=== PATIENT | female | born 1935 | race Caucasian/White ===

== ENCOUNTER 2020-06-04 00:13 | Inpatient (IN) | payer MEDICARE, OTHER ==
[2020-06-04] MEDS ORDERED: Furosemide 40 MG/4 ML VIAL ONE (01:29)
[2020-06-04] MEDS ORDERED: Diltiazem 125 MG/25 ML ONE (01:29)
[2020-06-04] MEDS ORDERED: Acetaminophen 325 MG TAB PO PRN (03:46)
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
[2020-06-04] MEDS ORDERED: Menthol/Camphor Lotion 222 ml Bottle TOP PRN (04:45)
[2020-06-04] MEDS: Furosemide 40 MG/4 ML VIAL SLOW IVP SCH ×2 (07:17→15:26)
--- NOTE | 2020-06-04 07:20 | CT ---
PRELIMINARY REPORT/[facility]/EMERGENCY AFTER HOURS PROCEDURE Receipt of this report by the clinical staff was confirmed with Favian Li DO by Jacquelin dasilva Jun 04, 2020 01:20:00 CDT. Addendum electronically signed by Jacquelin dasilva on June 04, 2020 1:21:36 AM CDT EXAM: CTA Chest with Intravenous Contrast CLINICAL HISTORY: Eval for possible PE; pt was seen in [place] for difficulty breathing, tightness in chest, and weaknes s. TECHNIQUE: Axial CTA images of the chest with intravenous contrast. Three-dimensional MIP/volume rendered reform ations were performed. Multiplanar reformats provided. CONTRAST: With; ISOVUE 370, 75ML intravenous. COMPARISON: None provided. FINDINGS: PULMONARY ARTERIES There is no intraluminal filling defect suspicious for PE. The main pulmonary artery and major branc hes are enlarged suggesting pulmonary hypertension. AORTA No thoracic aortic aneurysm or dissection. LUNGS The lungs are clear. No pulmonary mass. No focal airspace consolidation. PLEURAL SPACES Bilateral right greater than left layering pleural effusions. HEART AND MEDIASTINUM 4 chamber cardiac enlargement. LYMPH NODES No mediastinal adenopathy. Left axillary lymph node measures up to 1.2 cm in short axis. BONES No focal osseous abnormality or acute fracture. Multilevel degenerative changes of the spine. CHEST WALL AND UPPER ABDOMEN Left breast skin thickening, sub-cutaneous edema and nodule measuring 1.8 cm (series 2 image 65). IMPRESSION: 1. Negative for PE. 2. Bilateral pleural effusions, right greater than left. 3. Cardiomegaly. Correlate for CHF. 4. Left breast skin thickening, asymmetric edema within the left breast and possible mass. Correlat e with findings on mammography. 5. Enlarged pulmonary artery suggesting pulmonary hypertension. ELECTRONICALLY SIGNED BY: Cody Bello M.D. Jun 04, 2020 1:15:48 AM CDT This report is intended for review by the ordering physician only, in accordance of law. If you recei ve this report in error, please call [facility] at [phone]. FINAL REPORT Exam: CT angiogram of the chest HISTORY: Chest tightness, weakness and difficulty breathing COMPARISON: None TECHNIQUE: CT angiogram of the chest is performed in the axial plane. Three-dimensional reformatted i mages are submitted for interpretation FINDINGS: Mediastinum: No mass, lymphadenopathy or hematoma. HEART: Cardiomegaly. No significant pericardial effusion. Aorta: No aneurysm or dissection Upper solid abdominal viscera: No abnormality enhancement. Trachea and central bronchi: Patent Pleural spaces: Moderate right and small left pleural effusion Lung parenchyma: Consolidation of the right lower lobe and middle lobe likely due to atelectasis. Pneumothorax: None Osseous structures: No lytic or blastic lesions Pulmonary arteries: Adequate contrast opacification pulmonary arterial system to the level of segment al arteries. No filling defect to suggest pulmonary embolism IMPRESSION: 1. This report is in agreement with initial report by [facility]. 2. No evidence of pulmonary artery embolism to the level of the segmental arteries. 3. Cardiomegaly, pleural effusion. Correlate for congestive heart failure. 4. Asymmetric prominence of the left breast. Nonemergent mammography is recommended. Transcribed Date/Time: 06/04/2020 7:32 AM
[2020-06-04] MEDS ORDERED: Apixaban 5 MG TAB PO SCH (09:00)
[2020-06-04] MEDS ORDERED: Apixaban 2.5 MG TAB PO SCH (09:00)
[2020-06-04] MEDS ORDERED: Iopamidol 370 76% 100 ML VIAL ONE (09:28)
[2020-06-04] MEDS: Diltiazem 125 MG in Sodium Chloride 0.9% 100 ML IVPB SCH ×2 (10:53→19:53)
[2020-06-04 11:04] LABS: #Eosinphils 0.5 thou/uL (0.0-0.7); #Lymphocytes 0.5 thou/uL (1.20-3.40); #Monocytes 0.5 thou/uL (0.11-0.59); #Neutrophils 5.7 thou/uL (1.40-6.50); %Basophils 0.4 % (0.0-1.0); %Eosinophils 6.6 % (0.0-10.0); %Lymphocytes 6.7 % (21.0-51.0); %Monocytes 6.9 % (0.0-10.0); %Neutrophils 79.4 % (42.0-75.0); Hemoglobin 8.9 g/dL (12.0-16.0); Mean Corpuscular HGB CONC 30.2 g/dL (32.0-36.0); Mean Corpuscular Hemoglobin 23.7 pg (27.0-31.0); Mean Corpuscular Volume 78.4 fL (78.0-98.0); Mean Platelet Volume 8.5 fL (7.4-10.4); Platelet Count 218 thou/uL (130-400); RBC Distribution Width 15.1 % (11.5-14.5); Red Blood Cell (RBC) Count 3.76 mill/uL (4.20-5.40); White Blood Cell (WBC) Count 7.1 thou/uL (4.8-10.8)
--- NOTE | 2020-06-04 11:13 | CON ---
DATE OF CONSULTATION: HISTORY OF PRESENT ILLNESS: Alondra Morales from [place], [place], who was brought in over here by the son who lives here locally because she lives by herself. She presented with shortness of breath without any associated chest pain, chills, or sweats. She has never smoked, but she said her had longstanding history of tobacco abuse, can barely walk couple of 100 feet without getting markedly short of breath. PAST MEDICAL HISTORY: Otherwise, atrial fibrillation, hypothyroidism, hypertension, history of breast cancer, history of psoriasis. PREVIOUS SURGERIES: Hemorrhoid, cholecystectomy, bilateral breasts biopsy, fusion in the back, tonsils. SOCIAL HISTORY: Alcohol, none. Tobacco, none. ALLERGIES: AMPICILLIN, CIPRO, PENICILLIN. MEDICATIONS: Unknown current medications, but we are trying to get medicine from [place], [place] to restart home medications. REVIEW OF SYSTEMS: Otherwise, unremarkable. PHYSICAL EXAMINATION: VITAL SIGNS: Pulse is 86 and regular, blood pressure 160/70, respiratory rate of 18. CHEST: Decreased breath sounds bilaterally without any wheezing. CARDIAC: Normal S1 and S2. No gallops. ABDOMEN: No masses. DIAGNOSTIC STUDIES: X-ray shows right pleural effusion. CAT scan shows bilateral pleural effusions without any associated pulmonary emboli. LABORATORY DATA: White count 5000, H and H of , platelet count is normal. D-dimer is 2.5. Chemistry profile is unremarkable. BNP 398. ASSESSMENT AND PLAN: Congestive heart failure, bilateral pleural effusions, hypothyroidism, atrial fibrillation, breast cancer seroma, on p.o. medication. Once medicine list arrives, we can restart all home medications. I agree with diuretics. Deep venous thrombosis prophylaxis. Supportive care. We will follow in the ICU. Consultation note, 70 minutes, 50% direct patient care. Job ID: [id number]
[2020-06-04 11:32] LABS: Anion Gap 14 mmol/L (10-20); BUN (Urea Nitrogen) 10 mg/dL (9.8-20.1); Calc. Creatinine Clearance 68 mL/min (70-130); Carbon Dioxide 27 mmol/L (23-31); Chloride 100 mmol/L (98-107); Estimated GFR-MDRD 64; Potassium 4.2 mmol/L (3.5-5.1); Sodium 137 mmol/L (136-145)
[2020-06-04 11:33] LABS: Calcium 9.6 mg/dL (7.8-10.44); Glucose 132 mg/dL (83-110)
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
[2020-06-04] MEDS: Apixaban 5 MG TAB PO SCH (20:18)
[2020-06-04] MEDS: Lubiprostone 8 MCG CAP PO SCH (20:19)
[2020-06-04] MEDS: hydrOXYzine 25 MG TAB PO SCH (20:19)
[2020-06-05] MEDS: Furosemide 40 MG/4 ML VIAL SLOW IVP SCH ×2 (05:19→13:18)
[2020-06-05] MEDS: Levothyroxine Sodium 125 MCG TAB PO SCH (05:19)
[2020-06-05] MEDS: Ammonium Lactate 12% Lotion 225 GM BOT TOP PRN (05:24)
[2020-06-05 05:53] LABS: #Eosinphils 0.6 thou/uL (0.0-0.7); #Lymphocytes 0.7 thou/uL (1.20-3.40); #Monocytes 0.5 thou/uL (0.11-0.59); #Neutrophils 5.2 thou/uL (1.40-6.50); %Basophils 0.4 % (0.0-1.0); %Eosinophils 8.4 % (0.0-10.0); %Monocytes 7.4 % (0.0-10.0); %Neutrophils 73.8 % (42.0-75.0); Hemoglobin 8.5 g/dL (12.0-16.0); Mean Corpuscular Volume 77.3 fL (78.0-98.0); Mean Platelet Volume 8.6 fL (7.4-10.4); Platelet Count 201 thou/uL (130-400); RBC Distribution Width 15.3 % (11.5-14.5); Red Blood Cell (RBC) Count 3.56 mill/uL (4.20-5.40)
[2020-06-05 06:14] LABS: Anion Gap 14 mmol/L (10-20); BUN (Urea Nitrogen) 13 mg/dL (9.8-20.1); Calc. Creatinine Clearance 52 mL/min (70-130); Calcium 9.2 mg/dL (7.8-10.44); Carbon Dioxide 27 mmol/L (23-31); Chloride 99 mmol/L (98-107); Estimated GFR-MDRD 46; Glucose 103 mg/dL (83-110); Potassium 3.9 mmol/L (3.5-5.1); Sodium 136 mmol/L (136-145)
--- NOTE | 2020-06-05 08:20 | PRG ---
DATE OF SERVICE: 06/05/2020 SUBJECTIVE: Alondra Morales remains in the ICU and she says she is less short of breath. OBJECTIVE: VITAL SIGNS: Temperature is 98, pulse 97, sats 97% on 2 L, blood pressure I's and O's have been negative. CHEST: Decreased breath sounds. No wheezing. CARDIAC: Normal S1, S2. No gallops. ABDOMEN: No masses. IMPRESSION: 1. Respiratory failure secondary to congestive heart failure. 2. Atrial fibrillation. 3. Bilateral pleural effusion. 4. Hypothyroidism. PLAN: Await echo. We want to get Cardiology consult. Pulmonary is going to follow while in the ICU. Job ID: [id number]
[2020-06-05] MEDS: Apixaban 5 MG TAB PO SCH ×2 (09:11→21:54)
[2020-06-05] MEDS: Potassium Chloride 20 MEQ TAB PO SCH (09:11)
[2020-06-05] MEDS: Losartan 25 MG TAB PO SCH (09:11)
[2020-06-05] MEDS: Lubiprostone 8 MCG CAP PO SCH ×2 (09:15→21:56)
[2020-06-05] MEDS ORDERED: Prevnar 13-Val Conj/PF 0.5 ML SYRINGE IM ONE (11:00)
[2020-06-05 12:01] LABS: SARS-CoV-2 MS2 Positive; SARS-CoV-2 N Gene Negative; SARS-CoV-2 S Gene Negative; SARS-CoV-2 by NAA Not Detected (NotDetected); SARS-CoV-2 orf1ab Negative
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
--- NOTE | 2020-06-05 19:37 | CON ---
DATE OF CONSULTATION: HISTORY OF PRESENT ILLNESS: The patient is an 84-year-old woman, who presents with increasing dyspnea. The patient has a history of permanent atrial fibrillation. She takes chronic anticoagulation therapy. The patient is followed by a chief of surgery in [place]. She was in her usual state of health when she had to leave emergently. The patient was ran out of her medications. She presented to the emergency room markedly dyspneic. The patient denied having any chest discomfort. PAST MEDICAL HISTORY: 1. Congestive heart failure. 2. Atrial fibrillation. 3. Breast carcinoma. 4. Hypertension. 5. Psoriasis. PAST SURGICAL HISTORY: Hemorrhoidectomy, tonsillectomy, cholecystectomy, and back surgery. SOCIAL HISTORY: Nonsmoker. FAMILY HISTORY: Positive family history of congestive heart failure. MEDICATIONS: 1. Toprol 100 b.i.d. 2. Cardizem 240 q.i.d. 3. Potassium 20 daily. 4. Benicar 20 daily. 5. Synthroid 250 mcg daily. 6. Lasix 40 b.i.d. 7. Eliquis 5 b.i.d. ALLERGIES: CIPROFLOXACIN, AMPICILLIN, AND PENICILLIN. PHYSICAL EXAMINATION: GENERAL: Well-developed woman, in no acute distress. VITAL SIGNS: Blood pressure is 91/47. NECK: No jugular venous distention. LUNGS: Decreased breath sounds in the right base. HEART: Irregular rate and rhythm. Normal S1 and S2. ABDOMEN: Nondistended. EXTREMITIES: Showed moderate bilateral edema. VASCULAR: Radial pulse 2+. LABORATORY DATA: White blood cell count 7.0, hemoglobin 8.5, hematocrit 27.5, and platelets 201. Sodium 136, potassium 3.9, chloride 99, bicarbonate 27, BUN 13, and creatinine 1.12. EKG atrial fibrillation with a nonspecific T-wave abnormality. Echocardiogram normal left ventricular ejection fraction 55% to 60% with diastolic dysfunction and mild aortic regurgitation. IMPRESSION: 1. Congestive heart failure secondary to diastolic dysfunction. 2. Atrial fibrillation, permanent. 3. Hypertension. 4. Breast carcinoma. 5. Hypothyroidism. This patient presents with congestive heart failure and rapid atrial fibrillation. The patient ran out of her medications. The patient has been diuresed and restarted on her cardiac medications. From a cardiac standpoint, we will adjust her medications with her low blood pressure. The patient will continue being diuresed with Lasix. We will follow this patient with you through her hospitalization. Job ID: [id number] JANAK
[2020-06-05] MEDS: hydrOXYzine 25 MG TAB PO SCH (21:54)
[2020-06-06 03:56] LABS: #Eosinphils 0.8 thou/uL (0.0-0.7); #Lymphocytes 0.6 thou/uL (1.20-3.40); #Monocytes 0.5 thou/uL (0.11-0.59); #Neutrophils 4.4 thou/uL (1.40-6.50); %Basophils 0.6 % (0.0-1.0); %Eosinophils 12.1 % (0.0-10.0); %Lymphocytes 9.7 % (21.0-51.0); %Monocytes 8.4 % (0.0-10.0); %Neutrophils 69.2 % (42.0-75.0); Hemoglobin 8.2 g/dL (12.0-16.0); Mean Corpuscular HGB CONC 30.9 g/dL (32.0-36.0); Mean Corpuscular Hemoglobin 24.2 pg (27.0-31.0); Mean Corpuscular Volume 78.4 fL (78.0-98.0); Mean Platelet Volume 8.8 fL (7.4-10.4); Platelet Count 194 thou/uL (130-400); RBC Distribution Width 15.1 % (11.5-14.5); White Blood Cell (WBC) Count 6.4 thou/uL (4.8-10.8)
[2020-06-06 04:16] LABS: Anion Gap 12 mmol/L (10-20); BUN (Urea Nitrogen) 18 mg/dL (9.8-20.1); Calc. Creatinine Clearance 55 mL/min (70-130); Calcium 9.1 mg/dL (7.8-10.44); Carbon Dioxide 27 mmol/L (23-31); Chloride 98 mmol/L (98-107); Estimated GFR-MDRD 50; Glucose 105 mg/dL (83-110); Sodium 133 mmol/L (136-145)
[2020-06-06] MEDS: Levothyroxine Sodium 125 MCG TAB PO SCH (05:49)
[2020-06-06] MEDS: Furosemide 40 MG/4 ML VIAL SLOW IVP SCH ×2 (05:49→15:40)
[2020-06-06] MEDS: Losartan 25 MG TAB PO SCH (09:08)
[2020-06-06] MEDS: Lubiprostone 8 MCG CAP PO SCH ×2 (09:09→20:54)
[2020-06-06] MEDS: Potassium Chloride 20 MEQ TAB PO SCH (09:09)
[2020-06-06] MEDS: Apixaban 5 MG TAB PO SCH ×2 (09:09→20:54)
--- NOTE | 2020-06-06 14:30 | PRG ---
DATE OF SERVICE: 06/06/2020 SUBJECTIVE: Ms. Morales was awakened from sleep this morning and her breakfast was at the bedside. She had no complaints other than being sleepy. OBJECTIVE: VITAL SIGNS: She is afebrile, heart rate 77, respiratory rate 16, oximetry is 94% on room air, her blood pressure is 152/63. LUNGS: Clear. HEART: Regular rate and rhythm. Abdomen Soft and nontender. EXTREMITIES: With minimal edema. LABORATORY DATA: White count 6.4, hemoglobin is 8.2, platelets 194. All these labs are stable. Electrolytes are unremarkable except for mild decrease in sodium if 133, creatinine is 1.06. Echocardiogram done yesterday shows an ejection fraction 55% to 60%. Diastolic dysfunction was noted, thickened aortic valve leaflets were noted, but no report is noted of aortic stenosis. IMPRESSION: Congestive heart failure, clinically stable. PLAN: She needs to increase her activity. Spent time up in her care today. We will continue to follow. Job ID: [id number] MTDD
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
--- NOTE | 2020-06-06 19:25 | RAD ---
RADIOGRAPH CHEST 1 VIEW: DATE: 06/06/2020 TIME: 7:19 PM HISTORY: 84-year-old female with dyspnea. Follow-up pulmonary edema. COMPARISON: 06/03/2020 FINDINGS: Bilateral pleural effusions, right greater than left, for which CT demonstrated that they are much gr eater in volume than they appear on these single view chest radiographs. Prominent interstitial markings. No consolidation. No pneumothorax. Comparison is difficult because of positional difference s. Probably no major interval change. IMPRESSION: Bilateral pleural effusions.
[2020-06-06] MEDS: hydrOXYzine 25 MG TAB PO SCH (20:54)
[2020-06-07 04:53] LABS: #Eosinphils 0.9 thou/uL (0.0-0.7); #Lymphocytes 0.8 thou/uL (1.20-3.40); #Monocytes 0.7 thou/uL (0.11-0.59); #Neutrophils 5.3 thou/uL (1.40-6.50); %Basophils 0.6 % (0.0-1.0); %Lymphocytes 10.6 % (21.0-51.0); %Monocytes 9.2 % (0.0-10.0); %Neutrophils 68.6 % (42.0-75.0); Hemoglobin 9.3 g/dL (12.0-16.0); Mean Corpuscular HGB CONC 30.5 g/dL (32.0-36.0); Mean Corpuscular Hemoglobin 23.8 pg (27.0-31.0); Mean Platelet Volume 9.2 fL (7.4-10.4); Platelet Count 245 thou/uL (130-400); RBC Distribution Width 15.3 % (11.5-14.5); Red Blood Cell (RBC) Count 3.89 mill/uL (4.20-5.40); White Blood Cell (WBC) Count 7.8 thou/uL (4.8-10.8)
[2020-06-07] MEDS: Levothyroxine Sodium 125 MCG TAB PO SCH (05:03)
[2020-06-07] MEDS: Ammonium Lactate 12% Lotion 225 GM BOT TOP PRN (05:05)
[2020-06-07] MEDS: Lubiprostone 8 MCG CAP PO SCH ×2 (09:10→21:13)
[2020-06-07] MEDS: Apixaban 5 MG TAB PO SCH ×2 (09:11→21:13)
[2020-06-07] MEDS: Losartan 25 MG TAB PO SCH (09:12)
[2020-06-07] MEDS: Potassium Chloride 20 MEQ TAB PO SCH (09:12)
[2020-06-07 09:20] LABS: Chloride 100 mmol/L (98-107); Potassium 4.3 mmol/L (3.5-5.1); Sodium 134 mmol/L (136-145)
[2020-06-07 09:21] LABS: Calcium 9.7 mg/dL (7.8-10.44); Glucose 84 mg/dL (83-110)
[2020-06-07 09:23] LABS: Anion Gap 13 mmol/L (10-20); Carbon Dioxide 25 mmol/L (23-31)
[2020-06-07 09:25] LABS: BUN (Urea Nitrogen) 17 mg/dL (9.8-20.1); Calc. Creatinine Clearance 64 mL/min (70-130); Estimated GFR-MDRD 62
--- NOTE | 2020-06-07 13:05 | EKG ---
Test Reason : Blood Pressure : / mmHG Vent. Rate : 095 BPM Atrial Rate : 077 BPM P-R Int : 000 ms QRS Dur : 078 ms QT Int : 364 ms P-R-T Axes : 000 069 -66 degrees QTc Int : 457 ms Atrial fibrillation Septal infarct , age undetermined Abnormal ECG No previous ECGs available Confirmed by PARI MARTINI MD ([id number] on 06/07/2020 1:05:19 PM Referred By: MAURILIO WALSH Confirmed By:PARI MARTINI MD
--- NOTE | 2020-06-07 14:28 | PRG ---
DATE OF SERVICE: 06/07/2020 OBJECTIVE: VITAL SIGNS: Ms. Morales is afebrile, heart rate 89, respiratory rate 16, oximetry is 96% on room air, blood pressure 151/65. LUNGS: Clear. HEART: Regular rhythm. ABDOMEN: Soft and nontender. She feels like she is ready to go home. LABORATORY DATA: White count 7.8, hemoglobin 9.3, platelets 245. Electrolytes are unremarkable. Creatinine is 0.87. IMPRESSION: Congestive heart failure, clinically stable. Job ID: [id number]
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
[2020-06-07] MEDS: hydrOXYzine 25 MG TAB PO SCH (21:13)
[2020-06-08 04:03] LABS: #Basophils 0.1 thou/uL (0.0-0.2); #Eosinphils 0.7 thou/uL (0.0-0.7); #Lymphocytes 0.8 thou/uL (1.20-3.40); #Monocytes 0.6 thou/uL (0.11-0.59); #Neutrophils 4.4 thou/uL (1.40-6.50); %Basophils 0.9 % (0.0-1.0); %Eosinophils 10.2 % (0.0-10.0); %Lymphocytes 12.2 % (21.0-51.0); %Monocytes 8.6 % (0.0-10.0); %Neutrophils 68.1 % (42.0-75.0); Hemoglobin 8.3 g/dL (12.0-16.0); Mean Corpuscular HGB CONC 30.7 g/dL (32.0-36.0); Mean Corpuscular Hemoglobin 23.7 pg (27.0-31.0); Mean Corpuscular Volume 77.2 fL (78.0-98.0); Platelet Count 219 thou/uL (130-400); Red Blood Cell (RBC) Count 3.51 mill/uL (4.20-5.40); White Blood Cell (WBC) Count 6.5 thou/uL (4.8-10.8)
[2020-06-08 04:23] LABS: Iron 16 ug/dL (50-170); Iron Binding Capacity, Total 425 mcg/dL (265-497)
[2020-06-08 04:24] LABS: Anion Gap 13 mmol/L (10-20); BUN (Urea Nitrogen) 16 mg/dL (9.8-20.1); Calc. Creatinine Clearance 66 mL/min (70-130); Calcium 9.4 mg/dL (7.8-10.44); Carbon Dioxide 25 mmol/L (23-31); Chloride 100 mmol/L (98-107); Estimated GFR-MDRD 64; Glucose 96 mg/dL (83-110); Iron 12 ug/dL (50-170); Iron Binding Capacity, Total 431 mcg/dL (265-497); Potassium 4.7 mmol/L (3.5-5.1); Sodium 133 mmol/L (136-145)
[2020-06-08 04:48] LABS: Ferritin 22.5 ng/mL (10-291); Thyroid Stimulating Hormone 3.5213 uIU/mL (0.35-4.94)
[2020-06-08] MEDS: Levothyroxine Sodium 125 MCG TAB PO SCH (04:58)
[2020-06-08] MEDS: Furosemide 40 MG TAB PO SCH (08:44)
[2020-06-08] MEDS: Apixaban 5 MG TAB PO SCH ×2 (08:44→21:19)
[2020-06-08] MEDS: Losartan 25 MG TAB PO SCH (08:44)
[2020-06-08] MEDS: Folic Acid 1 MG TAB PO SCH (08:44)
[2020-06-08] MEDS: Potassium Chloride 20 MEQ TAB PO SCH (08:44)
[2020-06-08] MEDS ORDERED: Ferrous Sulfate 325 MG TAB PO SCH (08:45)
[2020-06-08] MEDS: Lubiprostone 8 MCG CAP PO SCH ×2 (08:45→21:19)
[2020-06-08 13:33] VITALS: BMI 28.3
[2020-06-08] MEDS: Ferrous Sulfate 325 MG TAB PO SCH (17:21)
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
[2020-06-08] MEDS: hydrOXYzine 25 MG TAB PO SCH (21:19)
--- NOTE | 2020-06-08 23:13 | CON ---
DATE OF CONSULTATION: REASON FOR CONSULT: Breast cancer. HISTORY OF PRESENT ILLNESS: Ms. Morales is a pleasant 84-year-old female who was diagnosed with left breast cancer in January of 2019. She states shortly thereafter she was diagnosed with a mass in her right breast. The recommendation was bilateral mastectomy, but unfortunately due to her poor cardiac function, it was felt she was not a good candidate for this. She was offered chemotherapy, but declined. She also did not go through radiation. She was started on letrozole and has been on letrozole for over a year. She recently moved to this facility and was admitted for shortness of breath and congestive heart failure. She has been treated on this admission and has improved and is pending rehab placement. PAST MEDICAL HISTORY: 1. Bilateral breast cancer diagnosed in January 2019. 2. Congestive heart failure. 3. Atrial fibrillation. 4. Hypothyroidism. 5. Psoriasis. 6. Hypertension. PAST SURGICAL HISTORY: Hemorrhoidectomy, tonsillectomy, cholecystectomy, back surgery, and breast biopsy. ALLERGIES: TO CIPRO, AMPICILLIN, AND PENICILLIN. HOME MEDICATIONS: 1. Amitiza. 2. Cardizem CD. 3. Eliquis. 4. Lasix. 5. Metoprolol. 6. Levothyroxine. 7. Letrozole. FAMILY HISTORY: She has a brother with lung cancer, sister with gastric cancer. SOCIAL HISTORY: , recently moved to live with son and [id number]. REVIEW OF SYSTEMS: 10-point review of systems is negative except for noted in HPI. PHYSICAL EXAMINATION: VITAL SIGNS: Temperature is 98.1, pulse is 66, respiratory rate 17, BP is 126/63. She is 99% on room air. GENERAL: A well-developed, well-nourished female, in no acute distress. HEENT: Normocephalic, atraumatic. Pupils are equal and reactive to light. NECK: Supple. CARDIOVASCULAR: Regular rate and rhythm. LUNGS: She has crackles in her posterior lung bases. ABDOMEN: Soft and nontender. Bowel sounds are positive. EXTREMITIES: 1+ bilateral lower extremity edema. SKIN: No rash. BREASTS: She has an ill-defined palpable mass in her left breast in the lower quadrant just below the nipple. No palpable masses in her right breast. NEUROLOGICAL: Nonfocal. PERTINENT LABORATORY DATA AND X-RAYS: Current WBCs are 6.5, hemoglobin 8.3, hematocrit 27.1, platelet count is 219,000. She has 68% neutrophils, 22% lymphocytes. Sodium 133, potassium 4.7, chloride 100, CO2 is 25, BUN is 16, creatinine 0.85, calcium 9.4. Iron 16, TIBC is 425, ferritin is 22, B12 was 370, folic acid is 510, TSH is 3.5. A CT angio of the chest shows no evidence of pulmonary emboli. She does have bilateral pleural effusions and her left breast mass. ASSESSMENT: 1. Bilateral breast cancer, currently on letrozole. 2. Folate deficiency. 3. Iron-deficient anemia. DISCUSSION: The patient has been taking letrozole for over a year and a half, would continue that for now. We discussed their other chemo options for breast cancer other than IV chemotherapy and she agrees to pursue this further. She was provided our clinic information. I have her medical oncologist information in [place] and we will attempt to get the medical records prior to her seeing in outpatient visit. She is folate deficient and has been started on folic acid. She also is iron deficient and has started oral iron. Would continue these upon discharge and we will follow up with her in the clinic. Thank you very much for the consult. Job ID: [id number]
[2020-06-09 04:45] LABS: Hemoglobin 8.8 g/dL (12.0-16.0); Mean Corpuscular HGB CONC 31.2 g/dL (32.0-36.0); Mean Corpuscular Hemoglobin 23.9 pg (27.0-31.0); Mean Corpuscular Volume 76.6 fL (78.0-98.0); Mean Platelet Volume 8.9 fL (7.4-10.4); Platelet Count 226 thou/uL (130-400); RBC Distribution Width 15.3 % (11.5-14.5); Red Blood Cell (RBC) Count 3.67 mill/uL (4.20-5.40); White Blood Cell (WBC) Count 6.1 thou/uL (4.8-10.8)
[2020-06-09 05:13] LABS: Anion Gap 11 mmol/L (10-20); BUN (Urea Nitrogen) 14 mg/dL (9.8-20.1); Calc. Creatinine Clearance 71 mL/min (70-130); Calcium 9.2 mg/dL (7.8-10.44); Carbon Dioxide 28 mmol/L (23-31); Chloride 99 mmol/L (98-107); Estimated GFR-MDRD 71; Glucose 84 mg/dL (83-110); Potassium 4.5 mmol/L (3.5-5.1); Sodium 133 mmol/L (136-145)
[2020-06-09] MEDS: Levothyroxine Sodium 125 MCG TAB PO SCH (05:16)
[2020-06-09] MEDS: Potassium Chloride 20 MEQ TAB PO SCH (08:19)
[2020-06-09] MEDS: Lubiprostone 8 MCG CAP PO SCH (08:19)
[2020-06-09] MEDS: Apixaban 5 MG TAB PO SCH (08:19)
[2020-06-09] MEDS: Losartan 25 MG TAB PO SCH (08:19)
[2020-06-09] MEDS: Folic Acid 1 MG TAB PO SCH (08:19)
[2020-06-09] MEDS: Furosemide 40 MG TAB PO SCH (08:20)
[2020-06-09] MEDS: Ferrous Sulfate 325 MG TAB PO SCH ×2 (08:20→16:33)
--- NOTE | 2020-06-09 14:27 | PDOC.HOSPP ---
- Subjective Encounter Date: 06/09/20 Encounter Time: 14:00 Subjective: Ms. Muñoz states that she is feeling "fine". But states that she really would like to go to rehab as she is not back to her baseline. She states she is not able to ambulate like she was prior to admission and she gets out of breath all ambulating. She is afraid that she would not be able to complete her ADLs at home - Objective Vital Signs & Weight: Vital Signs (12 hours) Temp Pulse Resp BP BP Pulse Ox 06/09/20 11:23 98.3 F 75 17 138/65 98 06/09/20 08:10 98.6 F 99 16 137/79 94 L 06/09/20 04:00 98.7 F 76 20 149/67 H 94 L Weight Admit Weight 189 lb 6 oz Weight 181 lb Most Recent Monitor Data Heart Rate from ECG 75 NIBP 91/47 NIBP BP-Mean 61 Respiration from ECG 21 SpO2 87 I&O: 06/08/20 06/09/20 06/10/20 06:59 06:59 06:59 Intake Total 1560 1560 Output Total 2400 2250 Balance -840 -690 Result Diagrams: 06/09/20 04:09 06/09/20 04:09 Hospitalist ROS - Medication Medications: Active Medications Generic Name Dose Route Start Last Admin Trade Name Freq PRN Reason Stop Dose Admin Ammonium Lactate 1 gm 06/04/20 12:45 06/07/20 05:05 Ammonium Lactate 12% Lotion 225 Gm Bot TOP 1 gm BID PRN Administration Itching Apixaban 5 mg 06/04/20 21:00 06/09/20 08:19 Apixaban 5 Mg Tab PO 5 mg BID JOSH Administration Diltiazem HCl 240 mg 06/06/20 09:00 06/09/20 08:19 Diltiazem Hcl Cd 240 Mg Capsule PO 240 mg DAILY JOSH Administration Ferrous Sulfate 325 mg 06/08/20 17:00 06/09/20 08:20 Ferrous Sulfate 325 Mg Tab PO 325 mg BID-WM JOSH Administration Folic Acid 1 mg 06/08/20 09:00 06/09/20 08:19 Folic Acid 1 Mg Tab PO 1 mg DAILY JOSH Administration Furosemide 40 mg 06/08/20 07:30 06/09/20 08:20 Furosemide 40 Mg Tab PO 40 mg DAILY-AC JOSH Administration Hydroxyzine HCl 25 mg 06/04/20 21:00 06/08/20 21:19 Hydroxyzine 25 Mg Tab PO 25 mg HS JOSH Administration Levothyroxine Sodium 250 mcg 06/05/20 06:00 06/09/20 05:16 Levothyroxine Sodium 125 Mcg Tab PO 250 mcg 0600 JOSH Administration Losartan Potassium 50 mg 06/05/20 09:00 06/09/20 08:19 Losartan 25 Mg Tab PO 50 mg DAILY JOSH Administration Lubiprostone 8 mcg 06/04/20 21:00 06/09/20 08:19 Lubiprostone 8 Mcg Cap PO 8 mcg BID JOSH Administration Metoprolol Succinate 100 mg 06/04/20 21:00 06/08/20 21:19 Metoprolol Succinate Xl 100 Mg Tab PO 100 mg HS JOSH Administration Potassium Chloride 20 meq 06/05/20 09:00 06/09/20 08:19 Potassium Chloride 20 Meq Tab PO 20 meq DAILY JOSH Administration - Exam General Appearance: NAD, awake alert Neck: no JVD Heart: RRR, no murmur, no gallops, no rubs Respiratory: CTAB, no wheezes, no rales, no ronchi Gastrointestinal: soft, non-tender, non-distended, normal bowel sounds Extremities: no cyanosis, no clubbing, no edema Hosp A/P - Plan Acute diastolic heart failureresolved Continue oral Lasix, patient is on room air and faring well Atrial fibrillation Continue diltiazem 240 mg daily Continue Eliquis 5 mg twice daily Currently being monitored on telemetry still Hypernatremia Sodium again at 133, will continue to monitor Iron deficiency anemia Folate deficiency anemia Patient has been started on iron and folic acid supplements Hypothyroidism Continue levothyroxine Disposition: Pending rehab placement, will need [id number] completed today
--- NOTE | 2020-06-09 14:58 | PDOC.MOPN ---
Interval History: no complaints, awaiting rehab placement. - Vital Signs Vital Signs: Vital Signs (12 hours) Temp Pulse Resp BP BP Pulse Ox 06/09/20 11:23 98.3 F 75 17 138/65 98 06/09/20 08:10 98.6 F 99 16 137/79 94 L 06/09/20 04:00 98.7 F 76 20 149/67 H 94 L Weight Admit Weight 189 lb 6 oz Weight 181 lb Most Recent Monitor Data Heart Rate from ECG 75 NIBP 91/47 NIBP BP-Mean 61 Respiration from ECG 21 SpO2 87 - Physical Exam General: Alert, Oriented x3, No acute distress HEENT: Atraumatic, PERRLA, EOMI, Mucous membr. moist/pink Lungs: Other Cardiovascular: Regular rate, Normal S1, Normal S2, No murmurs, Gallops, Rubs Abdomen: Normal bowel sounds, Soft, No tenderness, No hepatospenomegaly, No masses Neurological: Normal gait, Normal speech, Strength at 5/5 X4 ext, Normal tone, Sensation intact, Cranial nerves 3-12 NL, Reflexes 2+ Psych/Mental Status: Mental status NL, Mood NL - Labs Result Diagrams: 06/09/20 04:09 06/09/20 04:09 Lab results: Laboratory Results - last 24 hr 06/09/20 04:09: WBC 6.1, RBC 3.67 L, Hgb 8.8 L, Hct 28.1 L, MCV 76.6 L, MCH 23.9 L, MCHC 31.2 L, RDW 15.3 H, Plt Count 226, MPV 8.9 06/09/20 04:09: Sodium 133 L, Potassium 4.5, Chloride 99, Carbon Dioxide 28, Anion Gap 11, BUN 14, Creatinine 0.78, Estimated GFR (MDRD) 71, Glucose 84, Calcium 9.2 Status: lab reviewed by me A/P - Problem (1) Acute exacerbation of CHF (congestive heart failure) Current Visit: Yes Code(s): I50.9 - HEART FAILURE, UNSPECIFIED Status: Acute (2) Breast cancer Current Visit: Yes Status: Acute - Plan Plan: medical release form signed by patient. Will obtain medical records. once received, will call patient for appt continue letrozole.
[2020-06-09 15:56] VITALS: BP 147/73; TEMP 97.9
[2020-06-09] MEDS ORDERED: Letrozole 2.5 MG TAB PO SCH (19:45)
--- NOTE | 2020-06-10 02:13 | DIS ---
DATE OF ADMISSION: 06/04/2020 DATE OF DISCHARGE: 06/09/2020 DISCHARGE DIAGNOSES: 1. Acute diastolic heart failure. 2. Hyponatremia. 3. Iron deficiency anemia. 4. Folate deficiency anemia. 5. Alopecia, letrozole. 6. History of breast cancer. CONSULTATIONS: 1. Kael Art MD, with Cardiology. 2. Conchis Mcclendon NP, with Oncology. 3. Reymundo Pinon MD, with Pulmonary. PROCEDURES: None. BRIEF HISTORY OF PRESENT ILLNESS: This is an 84-year-old female with past medical history of CHF, atrial fibrillation, on Eliquis, hypothyroidism, breast cancer, presented to the emergency room with shortness of breath on exertion and edema in her legs. She was found to be in atrial fibrillation with RVR with a heart rate of 110-130. She was initially admitted to the [facility] on a diltiazem drip. CTA of her chest showed no evidence of a PE but showed bilateral pleural effusions. She was given IV Lasix and admitted for further workup. HOSPITAL COURSE: 1. Acute diastolic heart failure/atrial fibrillation with RVR: The patient was diuresed with IV Lasix 40 mg b.i.d. She was eventually transitioned to room air and was switched to oral Lasix. Repeat chest x-ray on 06/06 showed small bilateral pleural effusions that were persistent. The patient did well with oral Lasix 40 mg daily and did not desaturate while ambulating, so she will be discharged with this. For her atrial fibrillation, she was resumed on her oral diltiazem 240 mg b.i.d. and her metoprolol 100 mg p.o. at bedtime. She was also resumed on her Eliquis. She should follow up with her cut out stitcher and her PCP in a week. 2. Iron deficiency and folate deficiency anemia: The patient was noted to have hemoglobin of 8.3. She was noted to have significant alopecia. Iron study showed a ferritin of 22 and an iron sat of 4. She was started on iron 325 mg p.o. b.i.d. Her folate level was 5.1. She was started on folic acid supplementation. The patient reports normal colonoscopy in the past. Given her age, she is told she is not a candidate for future colonoscopies. She denies any blood in her stools. She should have this followed up with her nuclear equipment sales engineer. 3. History of breast cancer: The patient was resumed on her letrozole 2.5 mg daily. She will follow up with Conchis Mcclendon with Oncology on discharge. 4. Physical deconditioning: The patient requested to go to [facility] for rehabilitation. She was seen by Physical Therapy and ambulated 20 feet with a walker. I spoke with her [employer] insurance, and they denied inpatient therapy and SNF placement. She was set up with [facility] and [place]. DISCHARGE PHYSICAL EXAMINATION: VITAL SIGNS: Temperature 97.9, heart rate 71, respiratory rate 16, O2 saturation 98% on room air, blood pressure 147/73. GENERAL: The patient is alert, awake, and oriented x3. CVS: Regular rate and rhythm with no murmurs, rubs, or gallops. LUNGS: Slightly diminished breath sounds at the bases. ABDOMEN: Positive bowel sounds, soft, nontender, nondistended. EXTREMITIES: No significant edema. SKIN: Alopecia. LABORATORY DATA: CBC: Hemoglobin 8.8, hematocrit 28.1, platelet count 226, white count 6.1. BMP 06/09: Sodium 133. Rest of BMP unremarkable. Iron panel 06/08: Ferritin 22, iron sats 4, iron level 16, TIBC 425. Vitamin B12: 370. Folate: 5.1. TSH: 3.5. COVID PCR 06/04: Negative. IMAGING: CTA chest 06/04: Bilateral pleural effusions, right greater than left. Cardiomegaly. Left breast skin thickening within the left breast and possible mass. Enlarged pulmonary artery suggesting pulmonary hypertension. Chest x-ray 06/06: Bilateral pleural effusions. Echo 06/05: EF 55% to 60%. Mild AR. [id number] TR. Diastolic dysfunction. DISCHARGE CONDITION: Stable. ACTIVITY: As tolerated. DIET: Heart healthy diet with a 2 L fluid restriction. DISCHARGE MEDICATIONS: 1. Ferrous sulfate 325 mg p.o. b.i.d. 2. Folic acid 1 mg p.o. daily. 3. Furosemide 40 mg p.o. daily. 4. Letrozole 2.5 mg p.o. daily. DISCHARGE INSTRUCTIONS: The patient should follow up with Dr. Art in 2 to 3 weeks. Should follow up with Dr. Grupo Mon in a week and with Pulmonary in 14 days. Follow up with the PCP in 1 week. Consider repeat chest x-ray in 1 week. Job ID: [id number] MTDD
--- NOTE | 2020-06-10 03:42 | PQF ---
CLINICAL DOCUMENTATION CLARIFICATION FORM: Dear : Rebecca Santiago Date / Time: 06/10/20 0341 Please exercise your independent, professional judgment in responding to the clarification form. Clinical indicators are provided on the bottom of this form for your review Please check appropriate box(es) to clarify if the following diagnosis has been ruled in our ruled out: Respiratory Failure [ ] Ruled in diagnosis If Respiratory Failure is Ruled in, can you please specify the acuity if: [ ] Acute [ ] Chronic [ ] Acute on Chronic [ ] Ruled out diagnosis [ ] Improving [ ] Cannot rule out diagnosis [X ] Other diagnosis Acute respiratory insufficiency___ [ ] Unable to determine In addition, please specify: Present on Admission (POA): [ X ] Yes [ ] No [ ] Unable to determine Physician Signature: Date/Time: For continuity of documentation, please document condition throughout progress notes and discharge summary. Thank You. To be completed by CDI/Coding staff for physician review: Present Clinical Indicators - Signs / Symptoms / Labs Results and Location in Medical Record [X] BP155/113, Pulse 102, Resp 28, Temp 98.0 Vital signs 06/04 [X] O2 sats 95%, 96%, 94% 93% Vital signs 06/04 [X] Presented with SOB H&P 06/04 Favian WALSH [X] Respiratory failure secondary to CHF Consult Reymundo Hernandez 06/04 [X] Bilateral pleural effusion Consult Reymundo Hernandez 06/04 Present Risk Factors Results and Location in Medical Record [X] 84 year-old Female H&P 06/04 Favian VOGEL-C [X] CHF H&P 06/04 Favian PA-C [X] AFib H&P 06/04 Favian VOGEL-C [X] Breast cancer H&P 06/04 Favian PA-C Present Treatments Results and Location in Medical Record [X] IV lasix 40 mg oral MAR 06/04 [X] Oxygen 3L Respiratory Panel 06/04 [X] Chest\Thorax CTA Imaging Dr Lawrence 06/04 [X] Sprinkler Worker Consult Consult Reymundo Hernandez 06/04 CDS/Cream Tester Signature: Jocelyn Brownlee Keyshaamyamos Phone #: ext [phone] Date/Time: 06/10/2020 0341 This is a permanent part of the Medical Record [facility]
[2020-06-10] MEDS ORDERED: Letrozole 2.5 MG TAB PO SCH (09:00)
== END 2020-06-09 19:38 | disposition home or self-care (01) | DRG 308 ==
LOC: ERS 00:13 → ERHOLD 01:37 → CCU 06:37 → 2NO 06-05 12:01
PROVIDERS: ADMIT Internal Medicine; ATTEND Internal Medicine
DX: I48.21 Permanent atrial fibrillation (principal); I50.33 Acute on chronic diastolic (congestive) heart failure; E87.1 Hypo-osmolality and hyponatremia; D50.9 Iron deficiency anemia, unspecified; Z20.828 Contact with and (suspected) exposure to other viral communicable diseases; L65.9 Nonscarring hair loss, unspecified; L40.9 Psoriasis, unspecified; I25.10 Atherosclerotic heart disease of native coronary artery without angina pectoris; E78.5 Hyperlipidemia, unspecified; C50.919 Malignant neoplasm of unspecified site of unspecified female breast; I11.0 Hypertensive heart disease with heart failure; D52.9 Folate deficiency anemia, unspecified; R06.89 Other abnormalities of breathing; I08.3 Combined rheumatic disorders of mitral, aortic and tricuspid valves; Z79.811 Long term (current) use of aromatase inhibitors; Z90.710 Acquired absence of both cervix and uterus; Z90.49 Acquired absence of other specified parts of digestive tract; Z88.1 Allergy status to other antibiotic agents; Z88.0 Allergy status to penicillin; Z91.410 Personal history of adult physical and sexual abuse; Z79.899 Other long term (current) drug therapy; Z79.890 Hormone replacement therapy; Z79.01 Long term (current) use of anticoagulants
CPT/HCPCS: 36415; 71045; 71275; 80048; 82607; 82728; 82746; 83540; 83550; 84443; 85025; 85027; 87635; 93005; 93010; 93306; 93798; 96365; 96366; 96375; J1940; J3490; Q9967; U0003